=== PATIENT | female | born 1980 | race Caucasian/White ===

== ENCOUNTER → 2021-06-06 09:16 | Outpatient (BNVA) | payer OTHER, SELFPAY | PROVIDERS: PCP Registered Nurse; Visit Provider Registered Nurse | DX: E06.1 Subacute thyroiditis (principal); E03.9 Hypothyroidism, unspecified | CPT/HCPCS: 84439; 84443; 84481 ==

== ENCOUNTER → 2021-06-28 10:15 | Outpatient (BNVA) | payer OTHER, SELFPAY | PROVIDERS: PCP Registered Nurse; Visit Provider Nurse Practitioner Family | DX: Z20.822 Contact with and (suspected) exposure to COVID-19 (principal) | CPT/HCPCS: 87426; 87635 ==

== ENCOUNTER → 2021-07-07 10:27 | Outpatient (BNVA) | payer OTHER, SELFPAY | PROVIDERS: PCP Registered Nurse; Visit Provider Registered Nurse | DX: Z20.822 Contact with and (suspected) exposure to COVID-19 (principal) | CPT/HCPCS: 87635 ==

== ENCOUNTER 2021-08-07 12:25 | Outpatient (CLI) | payer OTHER, SELFPAY ==
--- NOTE | 2021-08-07 12:45 | US_ITS ---
WS: [id number] ULTRASOUND THYROID TECHNIQUE: Ultrasound of the thyroid. CLINICAL INFORMATION: E04.1 - Nontoxic single thyroid nodule COMPARISON: None. FINDINGS: Thyroid: Right and left thyroid lobes are normal in size and echotexture. Hypoechoic complex left thy roid nodule measuring 8.1 x 4.7 x 11 mm. Right thyroid lobe: 5.3 cm x 1.3 cm x 1.5 cm Left thyroid lobe: 4.3 cm x 1.4 cm x 1.3 cm. Isthmus: 0.2 mm. Cervical lymphadenopathy: Slightly prominent right submandibular lymph node nonspecific but likely re active measuring 2.1 x 1.7 x 0.8 cm US/US thyroid [id number] IMPRESSION: 1. Hypoechoic complex left thyroid nodule measuring 8.1 x 4.7 x 11 mm. Recomme nd 12-18 month follow-up. 2. No suspicious right thyroid nodules.
== END 2021-08-07 12:26 | disposition home or self-care (01) ==
LOC: RAD 12:27
PROVIDERS: PCP Registered Nurse; Visit Provider Registered Nurse
DX: E04.1 Nontoxic single thyroid nodule (principal)
CPT/HCPCS: 76536

== ENCOUNTER → 2021-12-13 09:54 | Outpatient (BNVA) | payer OTHER, SELFPAY | PROVIDERS: PCP Registered Nurse; Visit Provider Registered Nurse | DX: L98.9 Disorder of the skin and subcutaneous tissue, unspecified (principal) | CPT/HCPCS: 88305 ==

== ENCOUNTER 2022-07-20 12:44 | Outpatient (CLI) | payer OTHER, SELFPAY ==
--- NOTE | 2022-07-20 12:57 | MM_ITS ---
WS: [id number] VIEWS: MLO and CC views both breasts. 3D digital tomosynthesis is also included in this exam. No com parisons. Findings: There was no sign of mass, architectural distortion or suspicious calcification in either breast. Sc attered fibroglandular densities MM/[place] [id number] Impression: BI-RADS: 2-Benign FOLLOW-UP: 1 Year Follow-up This mammogram was also analyzed by the Computer Aided Detection System R2 Imag e Fuel Verification Technician.
[2022-07-20 14:03] LABS: Basophils % 0.4 %; Eosinophils # 0.2 10^3/uL (0.0-0.8); Eosinophils % 2.1 %; Hematocrit 43.8 % (37.0-47.0); Hemoglobin 14.7 g/dL (11.5-15.3); Lymphocytes # 3.8 10^3/uL (0.8-4.8); Lymphocytes % 37.9 %; Mean Corpuscular HGB Conc 33.6 g/dL (30.0-36.0); Mean Corpuscular Hemoglobin 32.2 pg (28.0-34.0); Mean Corpuscular Volume 96.1 fl (81-99); Mean Platelet Volume 9.4 fL (7.4-10.4); Monocytes # 0.6 10^3/uL (0.2-0.9); Monocytes % 5.5 %; Neutrophils # 5.46 10^3/uL (1.8-7.7); Neutrophils % 53.9 %; Nucleated Red Blood Cells % 0 %; Platelet Count 319 10^3/cmm (130-400); Red Blood Count 4.56 10^6/uL (4.1-5.3); Red Cell Distribution Width 13.4 % (12.1-15.1); White Blood Count 10.1 10^3/uL (4.0-10.0)
[2022-07-20 14:27] LABS: Alanine Aminotransferase 12 U/L (0-33); Albumin Level 4.2 g/dL (3.5-5.2); Alkaline Phosphatase 70 U/L (35-105); Anion Gap 13.6 (5-19); Aspartate Amino Transferase 12 U/L (0-32); Blood Urea Nitrogen 13 mg/dL (6-20); Calcium 8.9 mg/dL (8.5-10.5); Carbon Dioxide 25 mmol/L (22-29); Chloride 103 mmol/L (98-107); Chol HDL Ratio 4.39 mg/dL (0.0-4.40); Cholesterol 237 mg/dL (0-200); Globulin 3.5 g/dL (1.3-4.6); Glomerular Filtration Rate 108.6 mL/min (90-130); Glucose 83 mg/dL (65-115); HDL Cholesterol 54 mg/dL (60-100); LDL Cholesterol Calculated 163 mg/dL (50-129); LDL HDL Ratio 3.02 RATIO (0.00-3.22); Osmolality Calculated 285 mOsm/kg (285-295); Potassium 3.6 mmol/L (3.5-5.1); Sodium 138 mmol/L (136-145); Thyroid Stimulating Hormone 1.07 uIU/mL (0.27-4.20); Total Bilirubin 0.5 mg/dL (0.15-1.2); Total Protein 7.7 g/dL (6.6-8.7); Triglycerides 98 mg/dL (0-150)
== END 2022-07-20 12:45 | disposition home or self-care (01) ==
LOC: RAD 12:45
PROVIDERS: PCP Registered Nurse; Visit Provider Registered Nurse
DX: Z12.31 Encounter for screening mammogram for malignant neoplasm of breast (principal); Z13.6 Encounter for screening for cardiovascular disorders; E78.5 Hyperlipidemia, unspecified; Z86.39 Personal history of other endocrine, nutritional and metabolic disease
CPT/HCPCS: 36415; 77063; 77067; 80053; 80061; 84443; 85025

== ENCOUNTER → 2022-08-06 11:05 | Outpatient (BNVA) | payer OTHER, SELFPAY | PROVIDERS: PCP Registered Nurse; Visit Provider Registered Nurse | DX: R05.9 Cough, unspecified (principal); J20.1 Acute bronchitis due to Hemophilus influenzae | CPT/HCPCS: 87400 ==

== ENCOUNTER → 2023-08-16 08:38 | Outpatient (BNVA) | payer BC, SELFPAY | PROVIDERS: PCP Registered Nurse; Visit Provider Registered Nurse | DX: F41.8 Other specified anxiety disorders (principal); Z86.39 Personal history of other endocrine, nutritional and metabolic disease | CPT/HCPCS: 80053; 82607; 84443; 85025 ==

== ENCOUNTER → 2024-03-23 08:57 | Outpatient (BNVA) | payer BC, SELFPAY | PROVIDERS: PCP Registered Nurse; Visit Provider Registered Nurse | DX: Z13.6 Encounter for screening for cardiovascular disorders (principal); Z01.419 Encounter for gynecological examination (general) (routine) without abnormal findings; M25.50 Pain in unspecified joint; B95.4 Other streptococcus as the cause of diseases classified elsewhere | CPT/HCPCS: 80053; 80061; 84443; 85025; 85651; 86038; 86140; 86431; 87624 ==

== ENCOUNTER 2024-04-10 07:24 | Outpatient (CLI) | payer BC, SELFPAY ==
--- NOTE | 2024-04-10 07:30 | MM_ITS ---
WS: [id number] Bilateral screening 3D tomosynthesis digital mammogram, 04/10/2024 Clinical Data: Z12.39 - Encounter for other screening for malignant neop... Comparison: 07/20/2022 Findings: The breast parenchymal pattern shows fibroglandular tissue. No spiculated masses or clustered calcifi cations are seen. There are no secondary signs of carcinoma. MM/[place] [id number] Impression: 1. Negative bilateral mammogram unchanged. 2. Recommend annual screening mammograms. BIRADS: 1-Negative FOLLOW UP: 1 Year Follow-up The CAD raspberry checker was used.
== END 2024-04-10 07:25 | disposition home or self-care (01) ==
LOC: RAD 07:24
PROVIDERS: PCP Registered Nurse; Visit Provider Registered Nurse
DX: Z12.31 Encounter for screening mammogram for malignant neoplasm of breast (principal)
CPT/HCPCS: 77063; 77067

== ENCOUNTER 2024-05-27 11:37 | Day surgery (SDC) | payer BC, SELFPAY ==
[2024-05-27 12:07] VITALS: BMI 36.8
[2024-05-27 12:26] LABS: OR HCG Qualitative Urine Negative (Negative)
--- NOTE | 2024-05-27 12:33 | P.ANESASSM_ITS ---
Pre-Anesthetic Assessment Height/Weight: Height 1.63 m Weight 97.522 kg Operation Date: 05/27/24 13:00 Proposed Procedures p EGD - 59209, 72977, G0105,Z86.010, K21.9(Not Applicable) - Heladio Carpenter DO s Colonoscopy(Not Applicable) - Heladio Carpenter DO Familial anesthetic complications: none Was Beta Isacc taken within 24 hours: N/A Was Clonidine taken within 24 hours: N/A Last intake: Intake Last Liquid Date 05/26/24 Last Liquid Time 23:00 Last Solid Date 05/25/24 Last Solid Time 21:00 Social No alcohol and No tobacco (previous smoker) Exam alert and oriented x 3 Airway Submandibular: Other (short thyromental distance) Cervical ROM: within normal limits Mallampati: Class I Dentition: full History/ROS No significant complaints GI Gastroesophageal Reflux Disease Anesthetic Plan ASA status: 2 Anesthesia: Anesthesia Evaluation, General and MAC Medications/Allergies Home Medications Medication Instructions Recorded Confirmed Last Taken Type multivitamin 1 tab PO DAILY 06/06/21 05/27/24 05/25/24 History pantoprazole 40 mg tablet,delayed 40 mg PO BID 6 weeks #84 tabs 04/13/24 05/27/24 05/25/24 Rx release (Protonix) Allergies Allergy/AdvReac Type Severity Reaction Status Date / Time No Known Allergies Allergy Verified 05/27/24 12:06 [facility] Anesthesia Medical History History of subacute thyroiditis Family History Mother Diabetes Hypertension Heart disease Father Hypertension Social History Smoking and tobacco/nicotine status: former use of tobacco/nicotine Alcohol intake: never Substance/Drug Use: never Adopted: No Caregiver/support person: No Lives independently: No Household members: spouse and children Marital status: service: No Current occupational status: employed Sexually active: Yes Do you think of yourself as: Straight/Heterosexual Current gender identity: Female Female Reproductive History Date of last menstrual period: 05/22/24 Data Anesthesia Cardiac Studies: No Data to Display
[2024-05-27] MEDS: sodium chloride 0.9% 1,000 ML 30 ML IV (12:45)
--- NOTE | 2024-05-27 13:23 | PM.HP ---
Providers/Chief Complaint Primary Care Provider: CEDRICK Nick Chief Complaint: Z86.010 History of Present Illness Melinda Kitchen is a 44 year old female Review of Systems General: Reports: 10 or more systems reviewed and unremarkable except in HPI and below Medications/Allergies Home Medications Medication Instructions Recorded Confirmed Last Taken Type multivitamin 1 tab PO DAILY 06/06/21 05/27/24 05/25/24 History pantoprazole 40 mg tablet,delayed 40 mg PO BID 6 weeks #84 tabs 04/13/24 05/27/24 05/25/24 Rx release (Protonix) Allergies Allergy/AdvReac Type Severity Reaction Status Date / Time No Known Allergies Allergy Verified 05/27/24 12:06 PFSH Acute PFSH: Medical History History of subacute thyroiditis Family History Mother Diabetes Hypertension Heart disease Father Hypertension Social History Smoking and tobacco/nicotine status: former use of tobacco/nicotine Alcohol intake: never Substance/Drug Use: never Adopted: No Caregiver/support person: No Lives independently: No Household members: spouse and children Marital status: service: No Current occupational status: employed Sexually active: Yes Do you think of yourself as: Straight/Heterosexual Current gender identity: Female Female Reproductive History: Date of last menstrual period: 05/22/24 Vitals/I&O/Wt Weight last 48 hrs Weight 215 lb A&P Assessment and plan (1) GERD (gastroesophageal reflux disease): (2) History of colon polyps: Plan EGD and colonoscopy Attestations Medical Necessity Statement*: Home Coding Level of Care Code Acute Code for Chg Fwd Diagnoses GERD (gastroesophageal reflux disease) K21.9 History of colon polyps Z86.010
[2024-05-27 13:46] VITALS: BP 105/71; PULSE 78; RESP 18; TEMP 36.4; O2SAT 97
--- NOTE | 2024-05-27 13:51 | ANE.PACU2 ---
Inpatient post-anesthesia follow up: Airway intact: Yes Vital signs: Temperature Pulse Rate Respiratory Rate Blood Pressure Pulse Oximetry Oxygen Delivery Me thod Oxygen Flow Rate Fraction of Inspir ed Oxygen Hydration adequate: Yes Nausea and vomiting: No Pain level: 1 Mental status: Baseline
[2024-05-27 13:56] VITALS: BP 100/80; PULSE 71; RESP 18; O2SAT 98
[2024-05-27 14:07] VITALS: BP 109/75; PULSE 74; RESP 18; O2SAT 99
== END 2024-05-27 14:16 | disposition home or self-care (01) ==
PROVIDERS: Anesthesiology; PCP Registered Nurse; Visit Provider Surgery
PROC: 0DJ08ZZ Inspection of Upper Intestinal Tract, Via Natural or Artificial Opening Endoscopic (ICD-10-PCS; CPT 43235; principal; 2024-05-27 13:00)
PROC: 0DJD8ZZ Inspection of Lower Intestinal Tract, Via Natural or Artificial Opening Endoscopic (ICD-10-PCS; CPT 45378; 2024-05-27 13:00)
DX: Z12.11 Encounter for screening for malignant neoplasm of colon (principal); Z86.0100 Personal history of colon polyps, unspecified; Z87.891 Personal history of nicotine dependence; K21.9 Gastro-esophageal reflux disease without esophagitis; K29.50 Unspecified chronic gastritis without bleeding
CPT/HCPCS: 43239; 45378; 81025; 88305; 88342; J2704; J7030

== ENCOUNTER → 2025-01-21 09:37 | Outpatient (BNVA) | payer BC, SELFPAY | PROVIDERS: PCP Registered Nurse; Visit Provider Registered Nurse | DX: R35.0 Frequency of micturition (principal); N39.0 Urinary tract infection, site not specified | CPT/HCPCS: 81000; 87086 ==

== ENCOUNTER → 2025-03-23 11:22 | Outpatient (BNVA) | payer BC, SELFPAY | PROVIDERS: PCP Registered Nurse; Visit Provider Registered Nurse | DX: Z13.6 Encounter for screening for cardiovascular disorders (principal) | CPT/HCPCS: 80053; 80061; 85025 ==

== ENCOUNTER 2025-04-12 14:13 | Outpatient (CLI) | payer BC, SELFPAY ==
--- NOTE | 2025-04-12 14:20 | MM_ITS ---
WS: [id number] BILATERAL 3D TOMOSYNTHESIS DIGITAL SCREENING MAMMOGRAPHY WITH CAD CLINICAL INFORMATION: Z12.39 - Encounter for other screening for malignant neop... HISTORY: Screening mammogram. No current complaints. COMPARISON: 2023 TECHNIQUE: Bilateral CC and MLO views. FINDINGS: Scattered fibroglandular densities bilaterally. Ovoid nodular density upper outer LEFT breast measuring 7 mm. Recommend further evaluation with LEFT breast diagnostic mammography and ultrasound if persistent. Unremarkable RIGHT breast. MM/MM [facility] tomosynthesis [id number] IMPRESSION: DENSITY: There are scattered areas of fibroglandular density. BI-RADS: 0 - Incomplete: Need additional imaging evaluation. FOLLOW UP: Need Additional Imaging Recommend further evaluation with LEFT breast diagnostic mammography and ultras ound if persistent.
== END 2025-04-12 14:14 | disposition home or self-care (01) ==
LOC: RAD 14:13
PROVIDERS: PCP Registered Nurse; Visit Provider Registered Nurse
DX: Z12.31 Encounter for screening mammogram for malignant neoplasm of breast (principal); R92.323 Mammographic fibroglandular density, bilateral breasts; N63.21 Unspecified lump in the left breast, upper outer quadrant
CPT/HCPCS: 77063; 77067

== ENCOUNTER 2025-04-29 10:37 | Outpatient (CLI) | payer BC, SELFPAY ==
--- NOTE | 2025-04-29 10:44 | MM_ITS ---
WS: [id number] LEFT 3D TOMOSYNTHESIS DIGITAL MAMMOGRAPHY WITH CAD CLINICAL INFORMATION: ABNORMAL MAMMO HISTORY: Additional views COMPARISON: 04/12/2025 TECHNIQUE: 3 views of the left breast were obtained. FINDINGS: Scattered fibroglandular densities of the left breast. Previously described ovoid nodular density upper outer LEFT breast measuring 7 mm is persistent today on the spot compression views. Ultrasound described below. ULTRASOUND BREAST LEFT TECHNIQUE: Ultrasound left breast focused area of concern. CLINICAL INFORMATION: ABNORMAL MAMMO FINDINGS: Ultrasound LEFT breast at the 2 o'clock position 4 cm from the nipple. There is a tiny cyst measuring 6 x 6 x 3 mm which corresponds to the mammographic findings. This has a benign appearance. Recommend return to annual screening mammography. MM/MM diag LT tomosynthesis [id number] IMPRESSION: DENSITY: There are scattered areas of fibroglandular density. BI-RADS: 2 - Benign. FOLLOW UP: 1 Year Follow-up Recommend return to annual screening mammography.
== END 2025-04-29 10:38 | disposition home or self-care (01) ==
LOC: RAD 10:37
PROVIDERS: PCP Registered Nurse; Visit Provider Registered Nurse
DX: R92.8 Other abnormal and inconclusive findings on diagnostic imaging of breast (principal)
CPT/HCPCS: 76642; 77061; G0279